=== PATIENT | female | born 1985 | race Caucasian/White ===

== ENCOUNTER 2023-09-23 15:55 | Outpatient (CLI) | payer OTHER, SELFPAY | END 2023-09-23 15:56 | disposition home or self-care (01) | PROVIDERS: PCP Family Medicine; Visit Provider Family Medicine | DX: Z00.00 Encounter for general adult medical examination without abnormal findings (principal); Z86.79 Personal history of other diseases of the circulatory system | CPT/HCPCS: 80053; 80061; 84443 ==

== ENCOUNTER 2023-09-29 10:00 | Outpatient (CLI) | payer OTHER, SELFPAY | END 2023-09-29 10:01 | disposition home or self-care (01) | LOC: RAD 10:01 | PROVIDERS: PCP Family Medicine; Visit Provider Family Medicine | DX: Z86.79 Personal history of other diseases of the circulatory system (principal) | CPT/HCPCS: 93225; 93226 ==

== ENCOUNTER 2024-03-29 16:24 | Emergency (ER) | payer OTHER, SELFPAY ==
[2024-03-29 16:30] VITALS: BP 141/101; PULSE 84; RESP 18; TEMP 36.8; O2SAT 100; BMI 21.1
--- NOTE | 2024-03-29 16:46 | CRLHL7_ITS ---
For Patients: As a result of the Century Cures Act, medical imaging exams and procedure reports are released immediately into your electronic medical record. You may view this report before your referring provider. If you have questions, please contact your health care provider. INDICATION: LT EYE PAIN/ LT SIDED HEADACHE SINCE 2PM. TECHNIQUE: Non-contrast CT of the head is submitted. No comparisons. FINDINGS: The ventricles, sulci and gyri are of normal size, shape and contour. Midline structures are centrally located. No convincing evidence of intra- or extra-axial fluid collections. The orbits are unremarkable. IMPRESSION: No radiographic evidence of acute intracranial abnormalities. Please note that all CT scans at this facility use dose modulation, iterative reconstruction, and/or weight-based dosing when appropriate to reduce radiation dose to as low as reasonably achievable. Dictated by Benton Velasquez MD @ 03/29/2024 5:39:16 PM (Electronically Signed)
--- NOTE | 2024-03-29 16:47 | ED.GENADULT ---
HPI - General Adult General Date Seen: 03/29/24 Chief complaint: Eye Problems Stated complaint: L eye intense eye pain/headache-ref OHaller Time Seen by Provider: 03/29/24 16:35 Source: patient, RN notes reviewed and old records reviewed Mode of arrival: ambulatory Limitations: no limitations History of Present Illness HPI narrative: Patient is a 39-year-old, generally healthy woman who presents for evaluation of left eye irritation and headache. She says she worked out this morning, maybe an hour to after her workout she noted that her left eye was a little bit red and kind of irritated, it was sore to look back and forth. She did not have any visual complaints such as blurriness, diplopia, or drainage. She does not were contact lenses, she is status post LASIK. At around 2:00 p.m., she developed a headache behind her left eye. This gradually worsened over the next hour. She does say that she has a strong family history of migraine but no personal history of migraine. She has not noted photophobia or nausea. She continues to deny visual complaints. She has not had any fevers, no trauma, she is not on any control pills, has no history of DVT or PE, takes no medications, does not smoke or drink. She took some Tylenol at about 3:00 p.m., presents to the ER on 12/07 and says the headache has improved with Tylenol. Related Data Home Medications ?Medication ?Instructions ?Recorded ?Confirmed No Known Home Medications 03/29/24 03/29/24 Allergies Allergy/AdvReac Type Severity Reaction Status Date / Time No Known Allergies Allergy Verified 09/23/23 15:26 Review of Systems Status of ROS: Reports: 10 or more systems reviewed and unremarkable except as noted in History and below [facility] Medical History Infertility Recurrent cold sores ?B00.1 - Herpesviral vesicular dermatitis (ICD-10) Tinea versicolor ?B36.0 - Pityriasis versicolor (ICD-10) History of in vitro fertilization ?Z98.890 - Other specified postprocedural states (ICD-10) Surgical History Hx of dilation and curettage (2020) ?Z98.890 - Other specified postprocedural states (ICD-10) Vaginal delivery (2020) ?O80 - Encounter for full-term uncomplicated delivery (ICD-10) History of laparoscopy (2013) ?Z98.890 - Other specified postprocedural states (ICD-10) History of laparoscopic appendectomy (2006) ?Z90.49 - Acquired absence of other specified parts of digestive tract (ICD-10) History of colposcopy ?Z98.890 - Other specified postprocedural states (ICD-10) Family History Aunt Breast cancer, Onset Age: 50 Graves' disease Depression Paternal Grandmother CHF (congestive heart failure) Paternal Grandfather Stroke, Onset Age: 80 Maternal Grandmother Lung cancer Mother Graves' disease Migraine headache Uncle Depression Diabetes Father Migraine headache Social History Narrative: , RN project manager retail, 1 child Lifetime nonsmoker Exercise 3 times a week walking/workouts 15-30 minutes social drinker- 2-3/week What is your current living situation?: I presently have a place to live Problems where you live: no known problems In the past 12 months, utilities in danger of being shut off: no In past 12 months, lack of transportation kept you from medical appts, meetings, work, or getting things needed for daily living: no In the past 12 mos, have been you worried that your food would run out before you had money to buy more?: never true In the past 12 mos, the food you bought just didn't last and you didn't have money to buy more?: never true Smoking Status: Never smoker How often do you have a drink containing alcohol: monthly or less How often do you have six or more drinks on one occasion: Never AUDIT-C Alcohol total score: 1 Non-prescribed substance use: denies use How often does anyone, including family, friends and others, physically hurt you: never How often does anyone, including family, friends and others, insult or talk down to you: never How often does anyone, including family, friends and others, threaten you with harm: never How often does anyone, including family, friends and others, scream or curse at you: never Little interest or pleasure in doing things: not at all Feeling down, depressed, or hopeless: several days Exam Narrative: Exam Narrative: Vital signs as noted above. In general, an alert, well-appearing patient. Conversant, looks comfortable. Head: Normocephalic, atraumatic. Eyes: Pupils are equal reactive. Extraocular movements are full. On the left, the lateral conjunctiva is slightly erythematous and edematous. No visualized foreign body. The lids are largely normal, no significant swelling, perhaps faint erythema noted along the lid margin of the upper and lower lid, no visible stye. ENT: Mucous membranes are moist. Throat is normal. TMs normal bilaterally. No facial erythema. No significant temporal tenderness. Neck: Supple without lymphadenopathy. Heart: Regular rate and rhythm. No murmur or rub. Lungs: Clear bilaterally. No increased work of breathing, crackles or wheezes. Abdomen: Soft and nontender. No organomegaly. Extremities: Well perfused. No edema. No calf tenderness. Pulses intact. Neurologic: Patient is alert and oriented to person and place. Speech is fluent. Face is symmetric. Moves all extremities equally. Affect: Normal. Skin: Warm and dry. Well perfused. Const: Vital Signs, click to edit/add: Vital Signs - 24 hr 03/29/24 16:30 03/29/24 18:55 Temperature 98.3 F Pulse Rate [Right Pulse Oximeter] 84 70 Respiratory Rate 18 12 Blood Pressure [Ri ght Upper Arm] 141/101 H 105/71 Pulse Oximetry 100 100 Oxygen Delivery Me thod Room Air Room Air Documenting provider has reviewed patient's vital signs: yes Course Course ED Course: Patient presents with some ocular symptoms including discomfort with lateral gaze, associated mild conjunctival erythema, normal appearing pupil and no visual complaints. Exam does not suggest orbital cellulitis. Headache improved with Tylenol and she declines any need for further medications at this time. She does have a family history of migraine and that remains a consideration, this could represent conjunctivitis or developing stye, temporal arteritis felt to be unlikely given her age, but will go ahead and check inflammatory markers. Glaucoma also felt to be unlikely. Will do head CT to rule out intracranial hemorrhage given abrupt onset and lack of personal history of headache. CT scan of the head without contrast by my review is negative, read as negative by Radiology as well. She did change her mind and decided that she would like medications for headache, an IV was placed and she was given 500 mL of normal saline, Toradol, Zofran and Benadryl. She had good relief of her headache with that and feels significantly improved. Her labs are notable for normal white blood cell count of 7.2, a CRP of less than 0.5, sed rate pending, but would doubt temporal arteritis. COVID negative. D-dimer was less than 0.27 which I think given her low risk is adequate at this time to defer further imaging. She is feeling well at this time. Symptoms may be related to something like developing stye or conjunctivitis, migraine, other infectious process, but she is nontoxic, labs and CT are reassuring and I think it is reasonable to let her go home. Advised follow-up with an eye clinic in the next 1-2 days for recheck, return to the ER at any time for severe symptoms or acute worsening, and primary care follow-up if she is having problems with recurrent headaches. Vital Signs Vital signs: Initial Vital Signs Temperature 98.3 F 03/29/24 16:30 Temperature Source Temporal Artery Scan 03/29/24 16:30 Pulse Rate 84 03/29/24 16:30 Respiratory Rate 18 03/29/24 16:30 Blood Pressure 141/101 H 03/29/24 16:30 Blood Pressure Mean 114 H 03/29/24 16:30 Blood Pressure Position Sitting 03/29/24 16:30 Pulse Oximetry 100 03/29/24 16:30 Oxygen Delivery Method Room Air 03/29/24 16:30 Vital Signs Temperature 98.3 F 03/29/24 16:30 Pulse Rate 84 03/29/24 16:30 Respiratory Rate 18 03/29/24 16:30 Blood Pressure 141/101 H 03/29/24 16:30 Pulse Oximetry 100 03/29/24 16:30 Oxygen Delivery Method Room Air 03/29/24 16:30 Temperature 98.3 F 03/29/24 16:30 Pulse Rate 70 03/29/24 18:55 Respiratory Rate 12 03/29/24 18:55 Blood Pressure 105/71 03/29/24 18:55 Pulse Oximetry 100 03/29/24 18:55 Oxygen Delivery Method Room Air 03/29/24 18:55 Medications Administered Medications: Discontinued Medications Generic Name Dose Route Start Last Admin Trade Name Freq PRN Reason Stop Dose Admin Diphenhydramine HCl 25 mg 03/29/24 17:40 03/29/24 18:00 Diphenhydramine 50 Mg/Ml Inj IVP 03/29/24 17:41 25 mg ONCE ONE Administration Sodium Chloride 500 mls @ 500 mls/hr 03/29/24 17:40 03/29/24 18:29 0.9 % Sodium Chloride 500 Ml IV 03/29/24 18:39 Infused .Q1H ONE Infusion Ketorolac Tromethamine 15 mg 03/29/24 17:40 03/29/24 18:00 Ketorolac 15 Mg/Ml Inj IVP 03/29/24 17:41 15 mg ONCE ONE Administration Ondansetron HCl 4 mg 03/29/24 17:40 03/29/24 18:00 Ondansetron 2 Mg/Ml Inj IVP 03/29/24 17:41 4 mg ONCE ONE Administration Medical Decision Making Lab Data Labs: Lab Results 03/29/24 03/29/24 03/29/24 Range/Units 16:46 17:37 18:07 WBC 7.16 (4.50-11.00) K/uL RBC 4.19 (4.00-5.20) m/uL Hgb 12.7 (12.0-16.0) gm/dL Hct 39.0 (33.0-51.0) % MCV 93 (80-100) fL MCH 30 (26-34) pg MCHC 33 (32-36) gm/dL RDW Coeff of Martín 12.5 (11.5-15.5) % Plt Count 239 (140-440) K/uL Neut % (Auto) 55.9 (42.0-72.0) % Lymph % (Auto) 35.6 (20-44) % Page % (Auto) 7.7 (0.0-11.0) % Eos % (Auto) 0.4 (0.0-7.0) % Baso % (Auto) 0.3 (0.0-3.0) % Neut # (Auto) 4.00 (1.7-7.0) K/uL Lymph # (Auto) 2.55 (0.90-2.90) K/uL Page # (Auto) 0.60 (0.00-0.90) K/UL Eos # (Auto) 0.03 (0.00-0.50) K/uL Baso # (Auto) 0.02 (0.00-0.30) K/uL Abs Immat Gran (auto) 0.01 (0.00-0.30) K/uL Imm/Tot Granulo (auto) 0.1 % D-Dimer Quant (PE/DVT) < 0.27 (0.00-0.50) ug/ml C-Reactive Protein < 0.5 L (0.5-1.0) mg/dL SARS-CoV-2 (PCR) Negative SARS-CoV-2 (Negative) Influenza Type A (PCR) Negative PCR FLU A (Negative) Influenza Type B (PCR) Negative PCR FLU B (Negative) RSV (PCR) Negative PCR RSV (Negative) Discharge Plan Discharge Clinical Impression: Corneal irritation of left eye, Headache Patient Disposition: Home, Self-Care Condition: Improved Instructions: Acute Headache (ED) Additional Instructions: I would recommend that you follow-up with an eye clinic in the next 1-2 days for re-evaluation of your eye. If you develop worsening eye pain, vision changes, double vision, vomiting or other significant worsening, return to the emergency department. If you have recurrent headaches, would recommend primary care follow-up. Your CT scan and labs are reassuring tonight. Prescriptions: No Action No Known Home Medications Follow Up/Referrals: Radha Saldana MD [Primary Care Provider] - Stand Alone Forms: [employer] Info Instructions
--- OUTSIDE RECORDS SUMMARY | 2024-03-29 17:05 | XMS_ITS | Clinical Summary ---
Author Organization [employer] [facility] Address [place], [place] [address] Care Team Providers Care Pumping Plant Operator Name Role Phone Jake Ordonez MD Primary Care Provider Unavailable Allergies No known active allergies Medications No known medications Active Problems Problem Noted Date Diagnosed Date SYNCOPE Social History Tobacco Use Types Packs/Day Years Used Date Smoking Tobacco: Every Day Comments:Social Alcohol Use Standard Drinks/Week Comments Yes 0 (1 standard drink = 0.6 oz pur e alcohol) once a week Sex and Gender Information Value Date Recorded Sex Assigned at Not on file Gender Identity Not on file Sexual Orientation Not on file Obstetrics History Last Filed Vital Signs Vital Sign Reading Time Taken Comments Blood Pressure 102/64 02/03/2006 5:06 PM CDT (from Extended Vitals) Pulse 67 02/03/2006 5:06 PM CDT (from Extended Vitals) Temperature - - Respiratory Rate - - Oxygen Saturation 99% 02/03/2006 4:3 0 PM CDT Inhaled Oxygen Concentration - - Weight 73.5 kg (162 lb) 02/03/2006 4:30 PM CDT Height 154.9 cm (5' 1) 02/03/2006 4:30 PM CDT Body Mass Index 30.61 02/03/2006 4:30 PM CDT Plan of Treatment Health Maintenance Due Date Last Done Comments Tdap 01/15/1995 Depression screening for age 12+ 1996 HIV for age 15-65 01/15/1999 BMI (ht and wt on same day) for age 18+ 01/15/2002 Hepatitis C screening for age 18-79 01/15/2002 Tetanus booster 2004 COVID-19 vaccine series (2022-24 season) 2023 Pap test for age 21-65 08/14/2023 , 08/14/2020, 06/19/2016, Additional history exists Influenza for age 9-49 04/10/2024 Pneumococcal series for age 6-64 Aged Out No longer eligible based on patient's age to complete this topic Procedures Procedure Name Priority Date/Time Associated Diagnosis Comments TIE IN MACHINE OPERATOR THIN PREP PAP SCREEN IMAGED Routine 08/14/2020 11:45 AM INVASIVE CARDIOLOGIST from Last 3 Months or Most Recently Relevant to Health Maintenance Results * TIE IN MACHINE OPERATOR THIN PREP PAP SCREEN IMAGED (08/14/2020 11:45 AM INVASIVE CARDIOLOGIST) Case Report Gynecologic Cytology Report ? Case: [id number] ? Authorizing Provider: ??Marlys Stern MD ?Collected: ? 08/14/2020 1145 ? Ordering Location: ? [facility] ?Received: ?08/15/2020 1757 ? First Screen: ?Deepali Marks ? Specimen: ?TIE IN MACHINE OPERATOR ThinPrep Vial Screening, Cervical/Vaginal ? 08/23/2020 1:11 PM INVASIVE CARDIOLOGIST [facility] INTERPRETATION/ RESULT NEGATIVE FOR INTRAEPITHELIAL LESION OR MALIGNANCY (NIL) (none) 08/23/2020 1:11 PM INVASIVE CARDIOLOGIST [facility] IMEN ADEQUACY Satisfactory for evaluation Endocervical component present 08/23/2020 1:11 PM INVASIVE CARDIOLOGIST [facility] HPV REQUEST HPV and PAP 08/23/2020 1:11 PM INVASIVE CARDIOLOGIST [facility] Last Pap Date 06/19/2016 08/23/2020 1:11 PM INVASIVE CARDIOLOGIST [facility] Last Pap Result NIL 1:11 PM INVASIVE CARDIOLOGIST [facility] Menstrual Status 08/23/2020 1:11 PM INVASIVE CARDIOLOGIST [facility] Additional Information 08/23/2020 1:11 PM [facility] Comment: Interpreted at [facility] - [address], [place] [address] Automated Review Successful 08/23/2020 1:11 PM INVASIVE CARDIOLOGIST [facility] Comment:Specimen processed s uccessfully by automated optical laboratory manager device, ThinPrep Imaging System, [employer] ANCILLARY TESTING TIE IN MACHINE OPERATOR HPV Ordered, Please see separate report 08/23/2020 1:11 PM INVASIVE CARDIOLOGIST [facility] Note The pap test is a screening technique, not a diagnostic procedure. It is used primarily to screen for squamous cancers and precursor lesions. Published studies have shown that it is subject to both false negative and false positive results. The pap test should not be used as the sole means to diagnose or exclude pre-malignant and malignant lesions. 08/23/2020 1:11 PM INVASIVE CARDIOLOGIST [facility] Other (Cervical/Vagina l) 08/14/2020 11:45 AM INVASIVE CARDIOLOGIST 08/15/2020 5:57 PM INVASIVE CARDIOLOGIST Marlys Stern MD PATHOLOGY/CYTOLOGY [facility] [address] [place] [address], [place] from Last 3 Months or Most Recently Relevant to Health Maintenance Care Teams Pumping Plant Operator Relationship Specialty Start Date End Date Jake Ordonez MD PCP - General 04/21/05
[2024-03-29 17:41] LABS: PCR FLU A Negative PCR FLU A (Negative); PCR FLU B Negative PCR FLU B (Negative); PCR RSV Negative PCR RSV (Negative); SARS PCR* Negative SARS-CoV-2 (Negative)
[2024-03-29 17:44] LABS: Basophils Absolute Auto 0.02 K/uL (0.00-0.30); Basophils Percent Auto 0.3 % (0.0-3.0); Eosinophils Absolute Auto 0.03 K/uL (0.00-0.50); Eosinophils Percent Auto 0.4 % (0.0-7.0); Hemoglobin* 12.7 gm/dL (12.0-16.0); Immature Granulocytes Abs Auto 0.01 K/uL (0.00-0.30); Immature Granulocytes Pct Auto 0.1 %; Lymphocytes Absolute Auto 2.55 K/uL (0.90-2.90); Lymphocytes Percent Auto 35.6 % (20-44); Mean Corpuscular HGB Conc 33 gm/dL (32-36); Mean Corpuscular Hemoglobin 30 pg (26-34); Mean Corpuscular Volume 93 fL (80-100); Monocytes Percent Auto 7.7 % (0.0-11.0); Neutrophils Percent Auto 55.9 % (42.0-72.0); Platelet Count* 239 K/uL (140-440); RDW Coefficient of Variation % 12.5 % (11.5-15.5); Red Blood Count 4.19 m/uL (4.00-5.20); White Blood Count* 7.16 K/uL (4.50-11.00)
[2024-03-29 17:48] LABS: Slide Review Reflex No
[2024-03-29] MEDS: 0.9 % SODIUM CHLORIDE 500 ML 500 ML IV (17:50)
[2024-03-29] MEDS: KETOROLAC 15 MG/ML inj IVP (18:00)
[2024-03-29] MEDS: diphenhydrAMINE 50 MG/ML inj 25 MG IVP (18:00)
[2024-03-29] MEDS: ONDANSETRON 2 MG/ML inj 4 MG IVP (18:00)
[2024-03-29 18:03] LABS: C Reactive Protein* < 0.5 mg/dL (0.5-1.0)
[2024-03-29 18:55] VITALS: BP 105/71; PULSE 70; RESP 12; O2SAT 100
[2024-03-29 19:20] LABS: D Dimer Quantitative* < 0.27 ug/ml (0.00-0.50)
[2024-03-29 20:47] LABS: Erythrocyte SedimentationRate* 7 mm/hr (2-20)
== END 2024-03-29 19:37 | disposition home or self-care (01) ==
PROVIDERS: Emergency Provider Emergency Medicine; PCP Family Medicine
DX: H57.89 Other specified disorders of eye and adnexa (principal); R51.9 Headache, unspecified
CPT/HCPCS: 36415; 70450; 85025; 85379; 85651; 86140; 87631; 96374; 96375; 99284; J1200; J1885; J2405; J7030

== ENCOUNTER 2024-04-14 11:51 | Outpatient (CLI) | payer OTHER, SELFPAY ==
--- OUTSIDE RECORDS SUMMARY | 2024-04-14 11:54 | XMS_ITS | Clinical Summary ---
Author Organization [facility] Address [place], [place] [address] Care Team Providers Care Hse Manager Name Role Phone Jake Ordonez MD Primary [...] for age 18-79 01/15/2002 Tetanus booster 2004 Pap test for age 21-65 08/14/2023 , 08/14/2020, 06/19/2016, Additional history exists COVID-19 vaccine series (2022-24 season) 2024 Influenza for age 9-49 04/10/2024 Pneumococcal series for age 6-64 Aged Out No longer eligible based on patient's age to complete this topic Procedures Procedure Name Priority Date/Time Associated Diagnosis Comments DELIVERY AND MAIL SORTER THIN PREP PAP SCREEN IMAGED Routine 08/14/2020 11:45 AM RAILROAD DINING CAR STEWARD/STEWARDESS from Last 3 Months or Most Recently Relevant to Health Maintenance Results * DELIVERY AND MAIL SORTER THIN PREP PAP SCREEN IMAGED (08/14/2020 11:45 AM RAILROAD DINING CAR STEWARD/STEWARDESS) Case Report Gynecologic Cytology Report ? Case: [id number] ? Authorizing Provider: ??Marlys Stern MD ?Collected: ? 08/14/2020 1145 ? Ordering Location: ? [facility] ?Received: ?08/15/2020 1757 ? First Screen: ?Deepali Marks ? Specimen: ?DELIVERY AND MAIL SORTER ThinPrep Vial Screening, Cervical/Vaginal ? 08/23/2020 1:11 PM RAILROAD DINING CAR STEWARD/STEWARDESS [facility] INTERPRETATION/ RESULT NEGATIVE FOR INTRAEPITHELIAL LESION OR MALIGNANCY (NIL) (none) 08/23/2020 1:11 PM RAILROAD DINING CAR STEWARD/STEWARDESS [facility] IMEN ADEQUACY Satisfactory for evaluation Endocervical component present 08/23/2020 1:11 PM RAILROAD DINING CAR STEWARD/STEWARDESS [facility] HPV REQUEST HPV and PAP 08/23/2020 1:11 PM RAILROAD DINING CAR STEWARD/STEWARDESS [facility] Last Pap Date 06/19/2016 08/23/2020 1:11 PM RAILROAD DINING CAR STEWARD/STEWARDESS [facility] Last Pap Result NIL 1:11 PM RAILROAD DINING CAR STEWARD/STEWARDESS [facility] Menstrual Status 08/23/2020 1:11 PM RAILROAD DINING CAR STEWARD/STEWARDESS [facility] Additional Information 08/23/2020 1:11 PM [facility] Comment: Interpreted at [facility] - [address], [place] [address] Automated Review Successful 08/23/2020 1:11 PM RAILROAD DINING CAR STEWARD/STEWARDESS [facility] Comment:Specimen processed s uccessfully by automated marine structural welder device, ThinPrep Imaging System, [employer] ANCILLARY TESTING DELIVERY AND MAIL SORTER HPV Ordered, Please see separate report 08/23/2020 1:11 PM RAILROAD DINING CAR STEWARD/STEWARDESS [facility] Note The pap test is a screening technique, not a diagnostic procedure. It is used primarily to screen for squamous cancers and precursor lesions. Published studies have shown that it is subject to both false negative and false positive results. The pap test should not be used as the sole means to diagnose or exclude pre-malignant and malignant lesions. 08/23/2020 1:11 PM RAILROAD DINING CAR STEWARD/STEWARDESS [facility] Other (Cervical/Vagina l) 08/14/2020 11:45 AM RAILROAD DINING CAR STEWARD/STEWARDESS 08/15/2020 5:57 PM RAILROAD DINING CAR STEWARD/STEWARDESS Marlys Stern MD PATHOLOGY/CYTOLOGY [facility] [address] [place] [address], [place] from Last 3 Months or Most Recently Relevant to Health Maintenance Care Teams Hse Manager Relationship Specialty Start Date End Date Jake Ordonez MD PCP - General 04/21/05
[2024-04-15 14:46] LABS: HLA-B27 Negative (Negative)
[2024-04-15 15:20] LABS: Anti-Nuclear Ab(ANA)IgG ELISA None Detected (None Detected)
[2024-04-15 20:17] LABS: Rheumatoid Factor <10 IU/mL (0-14)
== END 2024-04-14 11:52 | disposition home or self-care (01) ==
LOC: NPINS 11:53
PROVIDERS: PCP Family Medicine; Visit Provider Optometrist
DX: H15.101 Unspecified episcleritis, right eye (principal)
CPT/HCPCS: 86039; 86041; 86042; 86431; 86812

== ENCOUNTER 2024-11-17 14:34 | Outpatient (CLI) | payer OTHER, SELFPAY ==
--- NOTE | 2024-11-17 14:40 | CRLHL7_ITS ---
For Patients: As a result of the Century Cures Act, medical imaging exams and procedure reports are released immediately into your electronic medical record. You may view this report before your referring provider. If you have questions, please contact your health care provider. COMPARISON: Baseline TECHNIQUE: CC and MLO views were obtained. These mammographic images have been obtained using full-field digital technique. These mammographic images were interpreted with the benefit of computer aided detection and tomosynthesis. BREAST COMPOSITION: The breasts are extremely dense, which lowers the sensitivity of mammography. FINDINGS: No suspicious findings. ASSESSMENT: BI-RADS 1 Negative RECOMMENDATION: Annual screening mammogram. A lay language report of this examination will be provided to the patient. Dictated by: Kennedy Bailey MD @ 11/18/2024 10:22:19 (Electronically Signed)
== END 2024-11-17 14:35 | disposition home or self-care (01) ==
LOC: MAMMO 14:35
PROVIDERS: PCP Family Medicine; Visit Provider Family Medicine
DX: Z12.31 Encounter for screening mammogram for malignant neoplasm of breast (principal); R92.343 Mammographic extreme density, bilateral breasts
CPT/HCPCS: 77063; 77067